=== PATIENT | female | born 1965 | race Caucasian/White ===

== ENCOUNTER 2025-02-16 10:45 | Outpatient (AMB) | payer OTHER, SELFPAY ==
--- NOTE | 2025-02-16 10:47 | A.OFFPC_ITS ---
Vital Signs 02/16/25 10:57 Height 5 ft 3 in Weight 124 lb 6 oz BMI 22.0 BP 118/68 Blood Pressure Location Lt brachial Position Sitting Respiration 12 Pulse 73 Pulse Source Pulse Oximeter Temp 97.6 F Temp Source Oral Pulse Oximetry (%) 98 Oxygen Delivery Method Room Air Intake Visit Reasons: TECHNICAL SU[employer]IP - Breast Cancer Intake Note: New patient to establish care Size Worker Required: No Allergies No Known Allergies Allergy (Verified 02/16/25 11:29) Medication List - Last Reconciled 02/16/25 by NATHAN AlbertsP-BC calcium carbonate (Calcium 600) 1,200 mg PO DAILY levothyroxine mcg PO triamcinolone acetonide 0.1% 1 appl topical BID-TID vit C,C-Bw-ptoce-lutein-zeaxan 250-90-40-1 mg (PreserVision AREDS-2) 1 tab PO BID Tobacco use date assessed: 02/16/25 Dental Screening Dental Screen Date: 02/16/25 Did you have a dental visit in the last 12 months?: No Did you have a dental problem in the last 6 months where you did not have access to dental care?: No Was dental information given to patient?: Yes HPI HPI Comments History of Present Illness Details 59 y/o F with guillermo hypothyroid, mul tinodular goiter, hx of pancreatitis, R breast high grade DCIS (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 Dtr drug addicted; cares for grandson Family hx: Sister and maternal aunt breast ca Health Maintenance: Colon 10 year recall, [place]. Mammo 2023 - no longer required s/p double mastectomy DEXA: 2023 osteopenia, on Ca+D managed by VARYING EXCEPTIONALITIES TEACHER PAP: partial hyst; active w/ VARYING EXCEPTIONALITIES TEACHER @ [place] Tdap 2023 Flu UTD Specialists: Onco at [facility] Optho [facility] [employer] Officer Endo Ramona Danielle Florez next labs in April Cards* no longer ff'd Derm Here today to est care & for CPE New patient Some records reviewed Hypothyroid managed by endocrinology and with Ravinder. On levothyroxine. Macular degeneration with cataracts is managed by Ophthalmology she was on preservation Breast cancer managed by Oncology Eczema on her arms treated with topical triamcinolone. Had a skin surveillance done by Dermatology. She reports a red area on her chest that has been present for years. Told it was benign. Today she presents with a red macular rash on her anterior chest extending to her right neck. Patient thinks that it was related to being nervous. It was not there earlier today. It does not bother her. We mutually agreed to have her monitor this rash and if it does not go away or gets worse to have her contact me or seek care with Derm Hx of syncope, was screened by Cards. Feels related to poor po intake. Has not recurred. They wanted to put in a loop recorder however she declined. She will consider further follow up but not at this time. Social stressors related to her daughter being drug addicted. She has to take care of her grandson who was age 14 and suffers from urinary incont. Admits insomnia. Related to stressors. Uses ijgr-khq-mjanmmm Benadryl type product with good effect. Trialed Ambien and what sounds like trazodone in the past without relief. Not interested in starting medications at this time however she was interested in counseling. Osteopenia, on ca+d Left lower back pain, consistently. Constant ache. Not unbearable. 3 weeks ago, felt like sciatica. This is gone. The low back pain cont. Denies injury, hx of kidney stones, changes in urination, abd pain, n/v. Tried APAP and NSAIDs w/ short lived relief. Denies red flags assoc w/ low back pain. ROS - General: Reports constant mild lower b ack pain, denies recent injury. - Neurological: Denies any recent fainti ng episodes. - Musculoskeletal: Reports mild osteopen ia-related hip pain. Denies any exacerb ation of back pain today. - Gastrointestinal: Denies belly pain, n ausea, or vomiting. Reports occasional acid reflux. - Genitourinary: Reports no issues with urination but notes urgency. - Endocrine: Reports ongoing management of thyroid condition. - Psychiatric: Reports stress, anxiety, and depression due to familial and work pressures. Reports sleep disturbances. Exam General: Well developed, well nourished, in no acute distress. Appears stated age. Head: Normocephalic, atraumatic. Eyes: Pupils are equal, round and reactive to light and accommodation. Conjunctivae are clear. Vision grossly normal. Ears: TMs clear AU, EACS WNL Nose: Patent, without discharge. Neck: Supple, no adenopathy or thyromegaly. Thyroid nodules noted. Breast: Status post bilateral mastectomy. Lungs: Clear to auscultation bilaterally. No rales, rhonchi or wheeze noted. Good air flow in all bone. Heart: Regular rate and rhythm. No murmurs, click, rubs or gallops are noted. Abdomen: Bowel sounds present in all quadrants. The abdomen is soft, nontender, with no masses or organomegaly noted. No hernias are noted. : Deferred. Reviewed recommendations for routine VARYING EXCEPTIONALITIES TEACHER. Pulses: Peripheral pulses are equal and palpable bilaterally. Extremities: No clubbing, cyanosis nor edema is noted. Neurologic: Gait and station normal. Cranial Nerves 2-12 intact. Motor strength grossly symmetrical and intact. No sensory loss. Balance normal. No CVAT. Skin: No ulcers, or lesions noted. Turgor is good. Skin color is good. Hair and nails are without abnormalities. See HPI. Psych: Normal eye contact, affect and mood appropriate, and normal interactions. Patient is alert and appropriate to context. Reports some anxiety and depressive symptoms. Plan: Recommend OTC Ibu 800mg TID for a few days, gentle stretching to help back pain. Edu on reasons to RTO or seek additional care. Cont all meds and care w/ care team Refer to NN for counseling Ok to use OTC sleep aides; consider meds PRN. Check labs in April and CC to Endo. Patient was informed and verbally consented to the use of an ambient scribe for clinic note documentation during this visit. An additional 30 minutes was spent addressing the problem(s) noted at todays visit. This includes time spent before the visit reviewing the chart, time spent during the visit, and time spent after the visit on documentation reviewing laboratory results, diagnostic imaging, medications, performing a medically necessary evaluation, counseling on diagnoses, care coordination, ordering appropriate tests, ordering appropriate medications, review of tests performed by other providers, reporting test results with the patient, communication with other healthcare providers. [facility] Medical History (Updated 02/16/25 @ 17:28 by Milla Cesar, [facility]) Breast cancer History of pancreatitis Hx of mammogram (~2023) Osteopenia Thyroid disorder Surgical History (Updated 02/16/25 @ 11:35 by Milla Cesar [facility]) H/O lumpectomy (~2009) H/O mastectomy (~2023) H/O: hysterectomy (~2010) History of breast surgery History of colonoscopy (~2017) Hx of cholecystectomy Social History (Updated 02/16/25 @ 10:57 by Yadira Sotomayor MA) Household Members: Friend(s) Both parents involved: No Caregiver staying overnight: No Housing: House Are you a primary rn managed care to a significant other at home: No Do you presently have visiting nurse or other home services: No 75 years or older and lives alone: No Alcohol intake: current Alcohol intake frequency: a few times a month Patient Tobacco Use Status: Never used Tobacco e-Cigarette/Vaping Use: Never Used Second Hand Smoke Exposure: No Current occupational status: employed Current occupation: human development Cognitive needs: No Hearing needs: No Vision needs: Yes (wear glasses) Questionnaire PHQ-9 Over the last 2 weeks, how often have you been bothered by any of the following problems? 1. Little interest or pleasure in doing things: not at all 2. Feeling down, depressed, or hopeless: not at all 3. Trouble falling or staying asleep, or sleeping too much: nearly every day 4. Feeling tired or having little energy: several days 5. Poor appetite or overeating: several days 6. Feeling bad about yourself - or that you are a failure or have let yourself or your family down: not at all 7. Trouble concentrating on things, such as reading the newspaper or watching television: not at all 8. Moving or speaking so slowly that other people could have noticed. Or the opposite - being so fidgety or restless that you have been moving around a lot more than usual: not at all 9. Thoughts that you would be better off or of hurting yourself in some way: not at all Total score: 5 Depression Screening Interpretation: Positive Depression Screening Follow-up: Existing condition Depression Screening Done: Yes 20259 - PHQ-9 Billing: Yes Source: Developed by Drs. Matti Mccord, Ca Mi, Reagan Kathleen and colleagues, with an educational bret from [employer]. Thrive Questionnaire Date Thrive assessed: 02/16/25 I am a: Patient What is your living situation today?: I have a steady place to live Within the past 12 months, did the food you bought not last and you didn't have the money to get more?: Never true Within the past 12 months, did you worry whether your food would run out before you got money to buy more?: Never true Do you have trouble paying for medicines?: No Do you have trouble getting transportation to medical appointments?: No Do you have trouble paying your heating and electricity bill?: No Do you have trouble taking care of your child, family member or friend?: No Do you have trouble with day-to-day activities such as bathing, preparing meals, shopping, managing finances, etc.?: No Are you currently unemployed and looking for a job?: No Are you interested in more education?: No Please select the resources that you would like help with: None Currently or been in a relationship where the following occur: No concerns reported THRIVE Score: 0 AUDIT C Alcohol Use Questionnaire (AUDIT-C) 1. How often do you have a drink containing alcohol?: Monthly or less 2. How many drinks containing alcohol do you have on a typical day when you are drinking?: 1 or 2 3. How often do you have six or more drinks on one occasion?: Never Total Score: 1 Score Reviewed/Action Taken: Yes ALEX-7 AMB Questionnaire ALEX-7 Date ALEX - 7 assessed: 02/16/25 Feeling nervous, anxious, or on edge: 1 = Several days Not being able to stop or control worryin = Several days Worrying too much about different things: 1 = Several days Trouble relaxin = Several days Being so restless that it is hard to sit still: 0 = Not at all Becoming easily annoyed or irritable: 0 = Not at all Feeling afraid as if something awful might happen: 0 = Not at all Total ALEX-7 score (0-4 normal; 5-9 mild; 10-14 moderate; 15-21 severe): 4 Source: Developed by Drs. Matti Mccord, Ca Mi, Reagan Kathleen and colleagues, with an educational bret from [employer]. ALEX-7 Assessment Billing ALEX-7 Assessment Tool: ALEX-7 Assessment 43050 Physical exam (Primary Care) Vital Signs: Last Vital Signs Temp 97.6 F 02/16/25 10:57 Pulse 73 02/16/25 10:57 Resp 12 02/16/25 10:57 BP 118/68 02/16/25 10:57 Pulse Ox 98 02/16/25 10:57 Oxygen Delivery Method Room Air 02/16/25 10:57 BMI result Body Mass Index 22.0 Tobacco/Smoking Status: Tobacco use Status Tobacco use date assessed 02/16/25 02/16/25 10:57 Patient Tobacco Use Status Never used Tobacco 02/16/25 10:57 e-Cigarette/Vaping Use Never Used 02/16/25 10:57 PHQ-9: PHQ-9 Score PHQ-9: Total score 5 02/16/25 11:40 Depression Screening Interpretation: Positive Depression Screening Follow-up: Existing condition Thrive Assessment: Date of Thrive Assessment Date Thrive assessed 02/16/25 02/16/25 10:52 Currently or been in a relationship where the following occur: No concerns reported Coding Level of Care Code Est Pt Level 4 (06818) New Pt Prev Care 40-64y(69888) Diagnoses Encounter for general adult medical examination with abnormal findings Z00.01 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 E06.3 Situational mixed anxiety and depressive disorder F43.23 Multinodular goiter E04.2 Malignant neoplasm of right female breast, unspecified estrogen receptor status, unspecified site of breast C50.911 Breast location: unspecified site of breast Estrogen receptor status: unspecified Patient sex: female Bilateral exudative age-related macular degeneration, unspecified stage H35.3230 Macular degeneration type: exudative age-related Exudative macular degeneration stage: unspecified stage Eye laterality: bilateral 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 Leukopenia type: neutropenia Neutropenia type: cyclic Gastroesophageal reflux disease without esophagitis K21.9 Esophagitis presence: without esophagitis Eczema, unspecified type L30.9 Eczema type: unspecified Encounter to establish care Z76.89 Laboratory exam ordered as part of routine general medical examination Z00.00 Family history of colon cancer Z80.0 Family history of breast cancer Z80.3 Additional Codes ALEX-7 Assessment Billing - ALEX-7 Assessment Tool: ALEX-7 Assessment 44892 ([id number]) PHQ-9 - 22857 - PHQ-9 Billing: Yes ([id number]) Assessment & Plan Assessment & Plan (1) Encounter for general adult medical examination with abnormal findings: Onset Date: ~02/2025 Code(s): Z00.01 - Encounter for general adult medical examination with abnormal findings Category: Medical (2) 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: Code(s): E06.3 - Autoimmune thyroiditis Category: Medical (3) Situational mixed anxiety and depressive disorder: Code(s): F43.23 - Adjustment disorder with mixed anxiety and depressed mood Category: Medical (4) Multinodular goiter: Code(s): E04.2 - Nontoxic multinodular goiter Category: Medical (5) Breast cancer, right: Comment: R breast high grade DCIS (2009 lumpectomy/Rx) Code(s): C50.911 - Malignant neoplasm of unspecified site of right female breast Category: Medical Qualifiers: Breast location: unspecified site of breast Estrogen receptor status: unspecified Patient sex: female Qualified Code(s): C50.911 - Malignant neoplasm of unspecified site of right female breast (6) Macular degeneration: Code(s): H35.30 - Unspecified macular degeneration Category: Medical Qualifiers: Macular degeneration type: exudative age-related Exudative macular degeneration stage: unspecified stage Eye laterality: bilateral Qualified Code(s): H35.3230 - Exudative age-related macular degeneration, bilateral, stage unspecified (7) Leukopenia: Code(s): D72.819 - Decreased white blood cell count, unspecified Category: Medical Qualifiers: Leukopenia type: neutropenia Neutropenia type: cyclic Qualified Code(s): D70.4 - Cyclic neutropenia (8) GERD (gastroesophageal reflux disease): Code(s): K21.9 - Gastro-esophageal reflux disease without esophagitis Category: Medical Qualifiers: Esophagitis presence: without esophagitis Qualified Code(s): K21.9 - Gastro-esophageal reflux disease without esophagitis (9) Eczema: Code(s): L30.9 - Dermatitis, unspecified Category: Medical Qualifiers: Eczema type: unspecified Qualified Code(s): L30.9 - Dermatitis, unspecified (10) Encounter to establish care: Code(s): Z76.89 - Persons encountering health services in other specified circumstances (11) Laboratory exam ordered as part of routine general medical examination: Code(s): Z00.00 - Encounter for general adult medical examination without abnormal findings Category: Medical (12) Family history of colon cancer: Comment: cousin Code(s): Z80.0 - Family history of malignant neoplasm of digestive organs Category: Medical (13) Family history of breast cancer: Comment: maternal aunt and sister negative genetic testing Code(s): Z80.3 - Family history of malignant neoplasm of breast Category: Medical Plan . Orders: Orders Complete Blood Count no Diff 04/10/25 E06.3 - Autoimmune thyroiditis, Z00.00 - Encounter for general adult medical examination without abnormal findings Lipid Panel 04/10/25 E06.3 - Autoimmune thyroiditis, Z00.00 - Encounter for general adult medical examination without abnormal findings Vitamin D 25-OH Total 04/10/25 E06.3 - Autoimmune thyroiditis, Z00.00 - Encounter for general adult medical examination without abnormal findings Comprehensive Met. Panel 04/10/25 E06.3 - Autoimmune thyroiditis, Z00.00 - En counter for general adult medical examination without abnormal findings Ferritin 04/10/25 E06.3 - Autoimmune thyroiditis, Z00.00 - Encounter for general adult medical examination without abnormal findings Hemoglobin A1c 04/10/25 E06.3 - Autoimmune thyroiditis, Z00.00 - Encounter for general adult medical examination without abnormal findings Microalbumin, Random (w Creat) 04/10/25 E06.3 - Autoimmune thyroiditis, Z00.00 - Encounter for general adult medical examination without abnormal findings TSH reflex Free T4 04/10/25 E06.3 - Autoimmune thyroiditis, Z00.00 - Encounter for general adult medical examination without abnormal findings Vitamin B12 and Folate 04/10/25 E06.3 - Autoimmune thyroiditis, Z00.00 - Encounter for general adult medical examination without abnormal findings Referrals Nurse Navigator Referral F43.23 - Adjustment disorder with mixed anxiety and depressed mood Patient Instructions: Walk-In Care (Urgent Care): We Make it Easy Walk-in for urgent medical issues such as: ? Seasonal Allergies ? Insect Bites ? Cough ? Diarrhea ? Acute Asthma Attacks ? Back, Knee or Joint Pain ? Ear Infection ? Fever without a Rash ? Headaches ? Nausea ? [place], Rash or Skin Irritation ? Sore Throat ? Sports Physicals ? Vomiting Most insurances are accepted. Patients do not need to be part of the [facility] to seek care at the walk-in clinic. Locations [address] , [place] [address] ? [phone] [facility] Walk-In Care in [place] provides services to ages 18 and over. Open Friday-Friday: 8 a.m. to 5 p.m. and Friday: 9 a.m. to 3 p.m.* *Hours may vary due to staffing availability. To confirm Walk-In Care hours in [place], please call [phone]. [address] [place] [id number] ? [phone] [facility] Walk-In Care in [place] provides services to ages 12 and over. Open Friday-Friday: 8 a.m. to 5 p.m. Hours may vary due to staffing availability. To confirm Walk-In Care hours in [place], please call [phone]. LABORATORY SERVICES: [facility] ? Primary Location [address] [place] [address] Friday through Friday 6:00 AM ? 5:00 PM Friday 7:00 AM ? 11:00 AM* [phone] The [facility] is centrally located near the front entrance of the [facility] for easy outpatient access. Convenient parking is provided for outpatients. *Hours may vary due to staffing availability. To confirm Laboratory hours for any location, please call [phone]. Offsite Location For your convenience, we offer offsite laboratory draw stations at the following locations: [address] [place] [address] ? [address], [address] Friday through Friday 7:30 AM ? 1:00 PM* [phone] *Hours may vary due to staffing availability. To confirm Laboratory hours for any location, please call [phone]. [place] ? [address] Friday through Friday 6:00 AM ? 3:30 PM* Friday 6:30 AM ? 3 PM* [phone] *Hours may vary due to staffing availability. To confirm Laboratory hours for any location, please call [phone]. [address] [facility] Friday through Friday 7:30 AM ? 4:00 PM* [phone] *Hours may vary due to staffing availability. To confirm Laboratory hours for any location, please call [phone]. [address] [facility] Friday through 9:00 AM ? 4:00 PM* *Hours may vary due to staffing availability. To confirm Laboratory hours for any location, please call [phone]. Appointments are not necessary. Walk-ins are welcome. Like all the departments throughout the [facility], our Lab undergoes frequent reviews to ensure the quality and accuracy of test results, and our staff takes special pride in its status as a nationally accredited facility. Patient Portal: ONE PATIENT. ONE RECORD. BETTER CARE. [facility] has a fully integrated, cutting- edge mobile electronic health information system that has revolutionized the way we care for our patients and manage our organization. This system improves communication and coordination enabling us to provide safe, higher-quality care, and an overall positive experience for staff and patients. Our first priority, as always, is to deliver the highest quality care possible. The system is running in the background supporting that priority. This portal is for all [facility] services and practices. If you are experiencing any technical difficulties with enrolling or logging into the Patient Portal please complete the [facility] Patient Portal Technical Support Form. [facility] now offers a new secure on-line interactive tool for patients to review their health information ? ?Patient Portal. This interactive web portal will enable patients and their families to take an active role in their care by providing easy, secure access to their health information via the internet. The Patient Portal provides patients with instant access to their health information, including laboratory results, medications, allergies, demographic information, visit history, and more. In addition to managing their own care, parents and health care proxies with authorized consent will appreciate the ability to access the records of those individuals for whom they provide care. Please note: if you wish to gain access (Proxy) to another patient?s portal, you will be required to come to the Medical Records Department in person at [facility]. Both the patient giving proxy access and the proxy will need to provide photo identification and complete the appropriate authorization. The Patient Portal also allows track their appointments online. The [facility] Patient Portal also saves patients time by allowing them to submit updates to their demographic and contact information prior to their visits. Portal email notifications will also alert patients to any new activity on their portal, such as test results and new appointments. In order to initially enroll in the [facility] Patient Portal, you will need to enter some required information including the following: * your [facility] Medical Record number * your personal home email address * name * date of Please note: In order to enroll in the [facility] Patient Portal, we need to have your email address on file in your electronic medical record. ?The email address needs to be specific for one person (yourself) in order for your Portal enrollment to be successful. ?You can update your email address in person with our Registration staff when you are registering for a hospital visit. ?Otherwise , you will need to come to the Health Information Management (Medical Records) Department at [facility]. ?We are open from Friday ? Friday from 7:30 a.m. ? 4:30 p.m. ?You will be required to present a photo id. Once you have successfully enrolled in the Patient Portal, you will receive a one-time user id and password for the Portal, sent to your email address. ?This will allow you to log into the Patient Portal within 99 hrs and reset your own logon id and password, and define personal security questions. ?Once your permanent login and password have been set, you can log into the [facility] Patient Portal at any time via the blue button above or from the Portal Logon button on any page of the [facility] website. [place] [facility] encourage all of our patients to enroll in Patient Portal as it presents a valuable opportunity for patients and their families to actively participate in their care and stay healthy Welcome to [facility]. ?We look forward to working with you. Health screenings for women You should visit your health care provider from time to time, even if you are healthy. The purpose of these visits is to: Screen for medical issues Assess your risk for future medical problems Encourage a healthy lifestyle Update vaccinations and other preventive care services Help you get to know your provider in case of an illness Information Even if you feel fine, you should still see your provider for regular checkups. These visits can help you avoid problems in the future. For example, the only way to find out if you have high blood pressure is to have it checked regularly. High blood sugar and high cholesterol levels also may not have any symptoms in the early stages. A simple blood test can check for these conditions. There are specific times when you should see your provider or receive specific health screenings. The [place] Preventive Services Task Force publishes a list of recommended screenings. Below are screening guidelines for women ages 18 to 39. BLOOD PRESSURE SCREENING Your blood pressure should be checked at least once every 3 to 5 years if: Your blood pressure is in the normal range (top number less than 120 mm Hg and bottom number less than 80 mm Hg) You don't have risk factors for high blood pressure Ask your provider if you need your blood pressure checked more often if: The top number is 120 to 129 mm Hg or the bottom number is 70 to 79 mm Hg You have diabetes, heart disease, kidney problems, are overweight, or have certain other health conditions You have a first-degree relative with high blood pressure You are Black You had high blood pressure during a If the top number is 130 mm Hg or greater or the bottom number is 80 mm Hg or greater, this is considered stage 1 hypertension. Schedule an appointment with your provider to learn how you can reduce your blood pressure. Watch for blood pressure screenings in your area. Ask your provider if you can stop in to have your blood pressure checked. BREAST CANCER SCREENING Experts do not agree about the benefits of breast self-exams in finding breast cancer or saving lives. Talk to your provider about what is best for you. A screening mammogram is not recommended for most women under age 40. Your provider may discuss and recommend mammograms, MRI scans, or ultrasounds if you have an increased risk for breast cancer, such as: A mother or sister who had breast cancer at a young age (most often starting screening earlier than the age the close relative was diagnosed) You carry a high-risk genetic marker CERVICAL CANCER SCREENING Cervical cancer screening should start at age 21 years unless your provider advises otherwise. After the first test: Women ages 21 through 29 should have a Pap test every 3 years. Exoprts do not agree on whether HPV testing is recommended for this age group. Women ages 30 through 65 should be screened with either a Pap test every 3 years or the HPV test every 5 years or both tests every 5 years (called cotesting ). Women who have been treated for precancer (cervical dysplasia) should continue to have Pap tests for 20 years after treatment or until age 65, whichever is longer. If you have had your uterus and cervix removed (total hysterectomy), and you have not been diagnosed with cervical cancer or precancer (high grade cervical neoplasia), you do not need cervical cancer screening. CHOLESTEROL SCREENING Cholesterol screening should begin at: Age 45 for women with no known risk factors for coronary heart disease Age 20 for women with known risk factors for coronary heart disease Repeat cholesterol screening should take place: Every 5 years for women with normal cholesterol levels More often if changes occur in lifestyle (including weight gain and diet) More often if you have diabetes, heart disease, kidney problems, or certain other conditions DIABETES SCREENING You should be screened for diabetes starting at age 35 and then repeated every 3 years if you have no risk factors for diabetes. Screening may need to start earlier and be repeated more often if you have other risk factors for diabetes, such as: You have a first degree relative with diabetes. You are overweight or have obesity. You have high blood pressure, prediabetes, or a history of heart disease. Screening for diabetes should be done if you are planning to become and you are overweight and have other risk factors such as high blood pressure. DENTAL EXAM Go to the dentist once or twice every year for an exam and cleaning. Your dentist will evaluate if you need more frequent visits. EYE EXAM Have an eye exam every 5 to 10 years before age 40. If you have vision problems, have an eye exam every 2 years or more often if recommended by your provider. You should have an eye exam that includes an examination of your retina (back of your eye) at least every year if you have diabetes. IMMUNIZATIONS Commonly needed vaccines include: Flu shot: get one every year. COVID-19 vaccine: ask your provider what is best for you. Tetanus-diphtheria and acellular pertussis (Tdap) vaccine: have one at or after age 19 as one of your tetanus-diphtheria vaccines if you did not receive it as an adolescent. Tetanus-diphtheria: have a booster (or Tdap) every 10 years. Varicella vaccine: receive 2 doses if you never had chickenpox or the varicella vaccine. Hepatitis B vaccine: receive 2, 3, or 4 doses, depending on your exact circumstances. Measles, mumps, and rubella (MMR) vaccine: receive 1 to 2 doses if you are not already immune to MMR. Your provider can tell you if you are immune. Ask your provider about the human papillomavirus (HPV) vaccine if: You have not received the HPV vaccine in the past You have not completed the full vaccine series (you should catch up on this shot) Ask your provider if you should receive other immunizations if you have certain health problems that increase your risk for some diseases such as pneumonia. INFECTIOUS DISEASE SCREENING Women who are sexually active should be screened for chlamydia and gonorrhea up until age 25. Women 25 years and older should be screened for chlamydia and gonorrhea if at high risk. Screening for hepatitis C: All adults ages 18 to 79 should get a one-time test for hepatitis C. people should be screened at every . Screening for human immunodeficiency virus (HIV): All people ages 15 to 65 should get a one-time test for HIV. Depending on your lifestyle and medical history, you may also need to be screened for infections such as syphilis and HIV, as well as other infections. PHYSICAL EXAM All adults should visit their provider from time to time, even if they are healthy. The purpose of these visits is to: Screen for disease Assess your risk of future medical problems Encourage a healthy lifestyle Update your vaccinations and other preventive care services Maintain a relationship with a provider in case of an illness Your height, weight, and BMI should be checked at every exam. During your exam, your provider may ask you about: Depression and anxiety Diet and exercise Alcohol and tobacco use Safety issues, such as using seat belts, smoke detectors, and intimate partner violence Your medicines and risk for interactions SKIN SELF-EXAM Your provider may check your skin for signs of skin cancer, especially if you're at high risk, such as if you: Have had skin cancer before Have close relatives with skin cancer Have a weakened immune system OTHER SCREENING Talk with your provider about colon cancer screening if you have a strong family history of colon cancer or polyps, or if you have had inflammatory bowel disease or polyps yourself. Routine bone density screening of women under 40 is not recommended.
[2025-02-16 10:57] VITALS: BP 118/68; PULSE 73; RESP 12; TEMP 36.4; O2SAT 98; BMI 22.0
--- OUTSIDE RECORDS SUMMARY | 2025-02-16 12:28 | XMS_ITS | Encounter Summary ---
Author Organization [facility] Address [address] [place] [address] Care Team Providers Care Dietetics Director Name Role Phone Jazmin Márquez MD Primary Care Provider Raisa Ferrera DO Primary Care Provider Ramandeep Howe MD Primary Care Provider Un available Encounter Details Date Type Department Care Team Description 03/31/2018 Pt. Non Urgent Medical Question [facility] [place] [address], [place] [id number] Ekaterina Dill MD Social History Tobacco Use Types Packs/Day Years Used Date Smoking Tobacco: Never Smokeless Tobacco: Never Alcohol Use Standard Drinks/Week Comments Yes 0 (1 standard drink = 0.6 oz pur e alcohol) 2 drinks 0-2x/wk Sex Assigned at Date Recorded Female 04/24/2021 11:07 PM EDT Job Start Date Occupation Industry Not on file Not on file Not on file documented as of this encounter Progress Notes * Marilu Ceballos R.N. - 03/31/2018 1:50 PM EDTFrom: Griselda Murphy To: Ekaterina Dill MD Sent: 03/31/2018 12:16 PM EDT Subject: Question regarding ULTRASOUND OF PELVIS I have a question about ULTRASOUND OF PELVIS resulted on 03/27/18, 6:44 PM. documented in this encounter Plan of Treatment Not on file documented as of this encounter Visit Diagnoses Not on filedocumented in this encounter Care Teams Dietetics Director Relationship Specialty Start Date End Date Jazmin Márquez MD PCP - General Family Practice 12/31/16 01/13/24 Raisa Mas DO PCP - General Internal Medicine 01/14/24 02/22/24 Ramandeep Duncan MD PCP - General Internal Medicine 02/23/24 documented as of this encounter
--- OUTSIDE RECORDS SUMMARY | 2025-02-16 12:28 | XMS_ITS | Encounter Summary ---
Author Organization [facility] Address [address] [place] [address] Care Team Providers Care Swimming Pool Servicer Name Role Phone Jazmin Márquez MD Primary Care Provider Raisa Ferrera DO Primary Care Provider Ramandeep Howe MD Primary Care Provider Un available Encounter Details Date Type Department Care Team Description 07/05/2022 Pt. Non Urgent Medical Question [facility] [address] [place] [address] Nelda Coats CNM [address] [place] [id number] Social History Tobacco Use Types Packs/Day Years Used Date Smoking Tobacco: Never Smokeless Tobacco: Never Alcohol Use Standard Drinks/Week Comments Yes 0 (1 standard drink = 0.6 oz pur e alcohol) 2 drinks 0-2x/wk Sex Assigned at Date Recorded Female 04/24/2021 11:07 PM EDT Job Start Date Occupation Industry Not on file Not on file Not on file documented as of this encounter Miscellaneous Notes * Telephone Encounter - Marilu Ceballos R.N. - 07/08/2022 8:25 AM EDTFrom: Griselda Murphy To: Nelda Coats CNM Sent: 07/05/2022 1:23 PM EDT Subject: Appointment Hi I???d like to schedule my annual check up appointment, if I don???t already have one. Thank you documented in this encounter Plan of Treatment Not on file documented as of this encounter Visit Diagnoses Not on filedocumented in this encounter Care Teams Swimming Pool Servicer Relationship Specialty Start Date End Date Jazmin Márquez MD PCP - General Family Practice 12/31/16 01/13/24 Raisa Mas DO PCP - General Internal Medicine 01/14/24 02/22/24 Ramandeep Duncan MD PCP - General Internal Medicine 02/23/24 documented as of this encounter
--- OUTSIDE RECORDS SUMMARY | 2025-02-16 12:28 | XMS_ITS | Clinical Summary ---
Author Organization [facility] [address] [facility] [address] Address [address] [place] [address] Phone Care Team Providers Care Die Trimmer Name Role Phone Tanisha Martínez MD Primary Care Provider [phone] Allergies Active Allergy Reactions Criticality Noted Date Comments Bee Venom Protein (Honey Bee) 2016 Medications calcium carbonate-rosi calciferol 500 mg-10 mcg (400 unit) per chewable tablet Chew by mouth. Active multivitamin with minerals tablet Take by mouth Active chlorhexidine (HIBICLENS) 4 % external liquid Apply 1 bottle topically once. Follow preop instruction from doctor's office Active levothyroxine (SYNTHROID, LEVOTHROID) 75 mcg tablet Take 1 tablet (75 mcg total) by mouth 1 (one) time each day in the morning. Take an extra tablet on Sundays. 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 Dr. Vangie Benjamin, [facility]. OTHER SURGICAL HISTORY 03/14/2011 Right PROCEDURE: OK EXC BREAST LES PREOP PLMT RAD MARKER OPEN 1 LES; COMMENT: Right breast needle-localized excision of suspicious calcifications, beingn. Dr. Vangie Benjamin, [facility]. HYSTERECTOMY PROCEDURE: HISTORICAL HYSTERECTOMY; COMMENT: Laparoscopic supracervical hysterectomy for fibroids. Cervix and ovaries remain in-situ. CHOLECYSTECTOMY PROCEDURE:CHOLECYSTECTOMY Medical History Medical History Date Comments Hypothyroidism DX:Hypothyroidis m Family history of breast cancer in female DX:Family history of breast cancer in female; COMMENT: Sister age 50, Maternal Aunt age 70 Osteopenia DX:Osteopenia History of ductal carcinoma in situ (DCIS) of breast DX:History of ductal carcino ma in situ (DCIS) of breast Macular degeneration DX:Macular degeneration Breast cancer DX:Breast cancer (HCC);COMMENT:Right sided grade 3 DCIS Family History Medical History Relation Name Comments Cancer Father kidney,lung ca Kidney cancer Father Lung cancer Father Basal cell carcinoma Maternal Grandfather Melanoma Maternal Grandmother Bladder Cancer Mother Transitional cell cancer Cancer Mother transitional ce ll bladder cancer Lung cancer Mother Cancer Mother's Sister breast ca.pa ncreatic ca Breast cancer Mother's side 1 Maternal au nt Pancreatic cancer Mother's side 1 Materna l aunt Colon cancer Mother's side 2 Maternal cou sin; late 40's Breast cancer Sister Leukemia Uncle Maternal Ovarian cancer Neg Hx Uterine cancer Neg Hx Relation Name Status Comments Father Maternal Grandfather Maternal Grandmother Mother Mother's Sister Mother's side 1 Mother's side 2 Sister Uncle Alive Social History Tobacco Use Types Packs/Day Years Used Date Smoking Tobacco: Never Smokeless Tobacco: Never Tobacco Cessation:Counseling Given: Not Answered Alcohol Use Standard Drinks/Week Comments Yes 0 (1 standard drink = 0.6 oz pur e alcohol) Comments Unknown Sex and Gender Information Value Date Recorded Sex Assigned at Not on file Legal Sex Female 4:21 PM EST Gender Identity Not on file Sexual Orientation Not on file Obstetrics History Last Filed Vital Signs Vital Sign Reading Time Taken Comments Blood Pressure 112/80 11/05/2024 10:24 AM EST Pulse 77 11/05/2024 10:24 AM EST Temperature 36.7 ??C (98.1 ??F) 11/05/2024 10:[address] Respiratory Rate - - Oxygen Saturation 100% 11/05/2024 10:24 AM EST Inhaled Oxygen Concentration - - Weight 54.9 kg (121 lb) 11/05/2024 10:24 AM EST Height 160 cm (5' 3 ) 09/13/2024 8:46 AM EST Body Mass Index 21.43 09/13/2024 8:46 AM EST Plan of Treatment Upcoming Encounters Date Type Department Care Team (Late st Contact Info) Description 05/04/2025 9:15 AM EDT Office Visit [facility] Hematology Oncology [address] [place] [phone] Kurt Cat MD [address] [place] [phone] 05/20/2025 1:30 PM EDT Office Visit Obstetrics and Gynecology [facility] [address] [place] [address] Jcarlos Kendall CN [address] [place] [address] Health Maintenance Due Date Last Done Comments Pneumococcal Vaccine: 50+ Years (1 of 2 - PCV) 1983 Pneumococcal Vaccine: Pediatrics (0 to 5 Years) and At-Risk Patients (6 to 64 Years) (1 of 2 - PCV) 1983 Social Influencers of Health Screening 10/19/2022 COVID-19 Vaccine ( season) 2024 09/28/2022, 10/15/2021, 01/21/2021, Additional history exists Depression Screening 06/11/2025 06/11/2024 Breast Cancer Screening 06/18/2026 06/18/20 24, 06/17/2023, 06/07/2022, Additional history exists Cervical Cancer Screening: HPV 10/15/2026 10/15/2021 Cholesterol Screening (Lipid Panel) 06/11/2029 06/11/2024, 06/11/2024 Colorectal Cancer Screening: Colonoscopy 05/06/2032 05/06/2022 DTaP,Tdap,and Td Vaccines (3 - Td or Tdap) 06/11/2034 06/11/2024, 07/05/2010 RSV Immunization Adult Patients (1 - 1-dose 75+ series) 2039 HIV Screening Completed 02/27/2018 Hepatitis C Screening Completed 02/27/2018 Zoster Vaccines Completed 11/09/2018, 08/10, 2014 Influenza Vaccine Completed 08/02/2024, , 08/19/2023, Additional history exists HIB Vaccines Aged Out No longer eligi ble based on patient's age to complete this topic HPV Vaccines Aged Out No longer eligi ble based on patient's age to complete this topic Hepatitis A Vaccines Aged Out No long er eligible based on patient's age to complete this topic Hepatitis B Vaccines Aged Out No long er eligible based on patient's age to complete this topic IPV Vaccines Aged Out No longer eligi ble based on patient's age to complete this topic MMR Vaccines Aged Out No longer eligi ble based on patient's age to complete this topic Meningococcal ACWY Vaccine Aged Out N o longer eligible based on patient's age to complete this topic Meningococcal B Vaccine Aged Out No l onger eligible based on patient's age to complete this topic RSV Immunization Patients Under 20 months Aged Out No longer eligible based on patient's age to complete this topic Varicella Vaccines Aged Out No longer eligible based on patient's age to complete this topic Procedures Procedure Name Priority Date/Time Associated Diagnosis Comments ALCIRA SCREENING DIGITAL Routine 06/18/2024 2:35 PM EDT Encounter for screening mammogram for malignant neoplasm of breast DEPRESSION SCREENING Routine 06/11/2024 LIPID PANEL Routine 06/11/2024 COLONOSCOPY Routine 05/06/2022 HPV Routine 10/15/2021 HEPATITIS C SCREENING Routine 02/27/2018 HIV SCREENING Routine 02/27/2018 from Last 3 Months or Most Recently Relevant to Health Maintenance Results * ALCIRA SCREENING DIGITAL (06/18/2024 2:35 PM EDT) Anatomical Region Laterality Modality Mammography 06/18/2024 1:14 PM EDT Narrative 06/18/2024 2:[address] [facility] Diagnostic Imaging Department [address] [place] [id number] Patient: ??GRISELDA REEDER ?/Age/Sex: 1965 - 58 - F Unit#: ??[id number] ? Location/Status: ??SPDIMAM/REG CLI ? Mnemonic/Ordering Site: ??DIGSC/SPMAM Ordering Physician: ??KURT CAT MD [facility] Screening Digital - 06/18/24 - 0 Report Status:Signed EXAM: [facility] Screening Digital EXAM DATE AND TIME: 06/18/2024 1:31 PM HISTORY: ??Screening. Personal history of right breast carcinoma (high-grade DCIS) treated with lumpectomy in 2010 followed by radiation treatment. Sister had breast carcinoma at age 50. COMPARISON: ??06/17/23, 06/07/22, 05/09/21, 05/02/20 TECHNIQUE: Bilateral digital breast tomosynthesis was performed in the CC and MLO projections. Computer aided detection with DustcloudD copygram 3D 3.1 was employed. TISSUE DENSITY: c. The breasts are heterogeneously dense, which may obscure small masses. FINDINGS: Focal asymmetry and architectural distortion are again seen in the medial right breast, approximately middle 3:00, consistent with the lumpectomy scar. There is thickening and retraction of the overlying skin, unchanged. New linearly oriented microcalcifications extend anteriorly, toward the nipple, from the scar. Further assessment with spot compression magnification views are recommended. Benign rim calcifications are again seen bilaterally. No suspicious masses are seen. The vascularity is unremarkable. IMPRESSION: 1. New microcalcifications in the right breast, for which additional views are recommended. The patient will be called back. 2. Stable mammographic appearance of the left breast. No evidence of malignancy is seen. BI-RADS: ??Category 0: Incomplete - Need Additional Imaging Evaluation RECOMMENDATION(S): 1: Special mammographic view(s) needed RIGHT Dictating Physician: ??CANDACE ABDI MD Electronically Signed by: ??CANDACE ABDI MD Dic Date/Time: ??06/18/24 1433 Sign date/Time: ??06/18/24 1435 Procedure Note Candace Abdi MD - 08/25/2024 [facility] Diagnostic Imaging Department [address] [place] [address] Patient: GRISELDA REEDER /Age/Sex: 1965 - 58 - F Unit#: [id number] Location/Status: SPDIMAM/REG CLI Mnemonic/Ordering Site: DIGSC/SPMAM Ordering Physician: KURT CAT MD [facility] Screening Digital - 06/18/24 - 1330 Report Status:Signed EXAM: [facility] Screening Digital EXAM DATE AND TIME: 06/18/2024 1:31 PM HISTORY: Screening. Personal history of right breast carcinoma(high-grade DCIS) treated with lumpectomy in 2010 followed by radiation treatment.Sister had breast carcinoma at age 50. COMPARISON: 06/17/23, 06/07/22, 05/09/21, 05/02/20 TECHNIQUE: Bilateral digital breast tomosynthesis was performed in the CCand MLO projections. Computer aided detection with Quill Content 3D 3.1was employed. TISSUE DENSITY: c. The breasts are heterogeneously dense, which mayobscure small masses. FINDINGS: Focal asymmetry and architectural distortion are again seen in the medialright breast, approximately middle 3:00, consistent with the lumpectomy scar.There is thickening and retraction of the overlying skin, unchanged. New linearly oriented microcalcifications extend anteriorly, toward thenipple, from the scar. Further assessment with spot compression magnificationviews are recommended. Benign rim calcifications are again seen bilaterally. No suspicious massesare seen. The vascularity is unremarkable. IMPRESSION: 1. New microcalcifications in the right breast, for which additional viewsare recommended. The patient will be called back. 2. Stable mammographic appearance of the left breast. No evidence ofmalignancy is seen. BI-RADS: Category 0: Incomplete - Need Additional Imaging Evaluation RECOMMENDATION(S): 1: Special mammographic view(s) needed RIGHT Dictating Physician: CANDACE ABDI MD Electronically Signed by: CANDACE ABDI MD Dic Date/Time: 06/18/24 1433 Sign date/Time: 06/18/24 1435 us Kurt Cat MD IMG BI PROCEDURES Final Res ult * Hm Depression Screening (06/11/2024) HM Depression Screening abstracted [facility] Provider HEALTH MAINTENANCE Final Result * Lipid panel (06/11/2024) [facility] LDL/HDL Ratio 2 0 - 4 Triglycerides 95 0 - 150 mg/dL Cholesterol 196 0 - 200 mg/dL HDL 93 >=40 mg/dL LDL Cholesterol 84 0 - 100 mg/dL Blood Venous blood specimen / Unknown Result [facility] Provider LAB BLOOD ORDERABLES Jennifer l Result * Colonoscopy (05/06/2022) [facility] Colonoscopy abstracted,no interpretation Anatomical Region Laterality Modality Other Result [facility] Provider HEALTH MAINTENANCE Final Result * Cervical Cancer Screening: HPV (10/15/2021) [facility] Cervical Cancer Screening: HPV abstracted ,negative Result [facility] Provider HEALTH MAINTENANCE Final Result * HIV Screening (02/27/2018) [facility] HIV Screening abstracted [facility] Provider HEALTH MAINTENANCE Final Result * Hepatitis C Screening (02/27/2018) [facility] Hepatitis C Screening Abstracted [facility] Provider HEALTH MAINTENANCE Final Result from Last 3 Months or Most Recently Relevant to Health Maintenance Insurance [facility] [place] [address] Care Teams Die Trimmer Relationship Specialty Start Date End Date O'Quinonez, Tanisha M, MD PCP - General 08/25/24
--- OUTSIDE RECORDS SUMMARY | 2025-02-16 12:28 | XMS_ITS | Encounter Summary ---
Author Organization [facility] Address [address] [place] [address] Care Team Providers Care Management Aide Name Role Phone Jazmin Márquez MD Primary Care Provider Raisa Ferrera DO Primary Care Provider Unavaila Ramandeep Chaidez MD Primary Care Provider Un available Reason for Visit * Reason Onset Date Comments TEST RESULTS 03/31/2018 Encounter Details Date Type Department Care Team Description 03/31/[address] [id number] Ekaterina Dill MD TEST RESULTS Social History Tobacco Use Types Packs/Day Years [...] Telephone Encounter - Marilu Ceballos R.N. - 03/31/2018 9:33 AM EDT Message to Dr Dill * Telephone Encounter - Rhianna Diego - 03/31/2018 9:13 AM EDT Inform patient: ANY URGENT OR ABNORMAL RESULTS WIILL RESULT IN A CALL BACK TO THE PATIENT MELANIE. Type of test: :ultrasound Date test was performed: 03/27/18 Where was the test performed: [facility] Who ordered this test?: Dr Dill Is the doctor here today?: NO Can the message wait until the doctor returns?: NO IF PATIENT'S PCP IS NOT IN INSTRUCT PATIENT THAT THEY WILL RECEIVE A CALL BACK WHEN THE PCP IS IN THE OFFICE NEXT. documented in this encounter Plan of Treatment Not on file documented as of this encounter Visit Diagnoses Not on filedocumented in this encounter Care Teams Management Aide Relationship Specialty Start Date End Date Jazmin Márquez MD PCP - General Family Practice 12/31/16 01/13/24 Raisa Mas DO PCP - General Internal Medicine 01/14/24 02/22/24 Ramandeep Duncan MD PCP - General Internal Medicine 02/23/24 documented as of this encounter
--- OUTSIDE RECORDS SUMMARY | 2025-02-16 12:28 | XMS_ITS | Encounter Summary ---
Author Organization [facility] Address [address] [place] [address] Care Team Providers Care Management Nurse Rn Name Role Phone Ramandeep Duncna MD Primary Care Provider Un available Encounter Details Date Type Department Care Team Description 07/30/2024 Orders Only Medical Records [address] [place] [address] Jarrell Rob MD [address] [place] [address] [address] [facility] [place] [address] Social History Tobacco Use Types Packs/Day Years [...] as of this encounter Plan of Treatment Not on file documented as of this encounter Procedures Procedure Name Priority Date/Time Associated Diagnosis Comments OUTSIDE LAB Routine 07/21/2024 documented in this encounter Results * OUTSIDE LAB (07/21/2024) Jarrell Rob MD LAB documented in this encounter Visit Diagnoses Not on filedocumented in this encounter Care Teams Management Nurse Rn Relationship Specialty Start Date End Date Ramandeep Duncan MD PCP - General Internal Medicine 02/23/24 documented as of this encounter
--- OUTSIDE RECORDS SUMMARY | 2025-02-16 12:28 | XMS_ITS | Clinical Summary ---
Author Organization [facility] Address [address] [place] [address] Care Team Providers Care Animal Shelter Clerk Name Role Phone Tanisha Martínez MD Primary Care Provider [phone] Allergies No known active allergies Medications Medication Sig Dispensed Refills Start Date End Date Status Calcium Carb-Cholecalciferol 500-400 MG-UNIT CHEW Chew by mouth. 0 Active levothyroxine (SYNTHROID) tablet 75 mcg Take 1 tablet (75 mcg total) by mouth every morning on an empty stomach. 1 1/2/ pillsdaily 0 Active Multiple Vitamins-Minerals (ICAPS AREDS 2 PO) Take by mouth. 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) 04/23/2018 Family History Medical History Relation Name Comments Cancer Father kidney,lung ca Cancer Maternal Aunt breast ca.panc reatic ca Cancer Mother transitional ce ll bladder cancer Relation Name Status Comments Father Maternal Aunt Mother Social History Tobacco Use Types Packs/Day Years Used Date Smoking Tobacco: Never Smokeless Tobacco: Never Tobacco Cessation:Counseling Given: Yes Sex and Gender Information Value Date Recorded Sex Assigned at Not on file Gender Identity Not on file Sexual Orientation Not on file Job Start Date Occupation Industry Not on file Not on file Not on file Last Filed Vital Signs Vital Sign Reading Time Taken Comments Blood Pressure 116/59 08/25/2024 10:33 AM EDT Pulse 71 08/25/2024 10:33 AM EDT Temperature 36.7 ??C (98 ??F) 08/25/2024 10:33 AM EDT Respiratory Rate - - Oxygen Saturation 100% 08/25/2024 10:33 AM EDT Inhaled Oxygen Concentration - - Weight 54.4 kg (120 lb) 08/25/2024 10:33 AM EDT Height 160 cm (5' 3 ) 07/14/2024 11:27 AM EDT Body Mass Index 21.26 07/14/2024 11:27 AM EDT Plan of Treatment Health Maintenance Due Date Last Done Comments COVID-19 Vaccine (#1) 1969 Pneumococcal Vaccine (1 of 2 - PCV) 1970 Depression Screening 1976 Preventative Health Evaluation 1982 Cervical Cancer Screening (P ap Smear) 1985 Colon Cancer Screening (Colonoscopy) 2009 Breast Cancer Screening (Mammogram) 2014 Shingrix-Zoster Vaccine (2 of 2) 02/04/2015 12/10/19 15 Influenza Vaccine (#1) 2024 DTap / Tdap / Td (2 - Td or Tdap) 06/11/2034 024 RSV Adult > 60+ Yrs or Pregn ant (1 - 1-dose 75+ series) 2039 Hepatitis C Screening Completed 02/27/2018 Hepatitis B Vaccines Aged Out No long er eligible based on patient's age to complete this topic RSV Ped < 20 months Aged Out No longe r eligible based on patient's age to complete this topic Care Teams Animal Shelter Clerk Relationship Specialty Start Date End Date Tanisha Martínez MD PCP - General Internal Medicine 08/25/24
--- OUTSIDE RECORDS SUMMARY | 2025-02-16 12:28 | XMS_ITS | Encounter Summary ---
Author Organization [facility] Address [address] [place] [address] Care Team Providers Care Fiscal Clerk Name Role Phone Tanisha Martínez MD Primary Care Provider [phone] Encounter Details Date Type Department Care Team (Late Contact Info) Description 08/25/2024 10:30 AM EDT Hospital Encounter TH HISTORIC ENCOUNTERS EASTERN CONVERSION ONLY Kurt Nassar MD [address] [place] [address] Social History Tobacco Use Types [...] Department Care Team (Late Contact Info) Description 05/04/2025 9:15 AM EDT Office Visit [facility] Hematology Oncology [address] [place] [phone] Kurt Nassar MD [address] [place] [address] 05/20/2025 1:30 PM EDT Office Visit Obstetrics and Gynecology - [place] [address] [place] [address] Jcarlos Kendall [facility] [address] [place] [address] documented as of this encounter Visit Diagnoses Not on filedocumented in this encounter Care Teams Fiscal Clerk Relationship Specialty Start Date End Date Tanisha Martínez MD PCP - General 08/25/24 documented as of this encounter
== END 2025-02-16 11:57 | disposition home or self-care (01) ==
LOC: HO.HMCFM 10:46
PROVIDERS: PCP Nurse Practitioner Family; Visit Provider Nurse Practitioner Family
DX: Z00.01 Encounter for general adult medical examination with abnormal findings (principal); C50.911 Malignant neoplasm of unspecified site of right female breast; H35.3230 Exudative age-related macular degeneration, bilateral, stage unspecified; D70.4 Cyclic neutropenia; E06.3 Autoimmune thyroiditis; F43.23 Adjustment disorder with mixed anxiety and depressed mood; E04.2 Nontoxic multinodular goiter; K21.9 Gastro-esophageal reflux disease without esophagitis; L30.9 Dermatitis, unspecified; Z76.89 Persons encountering health services in other specified circumstances; Z80.0 Family history of malignant neoplasm of digestive organs

== ENCOUNTER → 2025-02-16 10:45 | Outpatient (BNVA) | payer OTHER, SELFPAY | PROVIDERS: PCP Nurse Practitioner Family; Visit Provider Nurse Practitioner Family | DX: Z00.01 Encounter for general adult medical examination with abnormal findings (principal); E06.3 Autoimmune thyroiditis; K21.9 Gastro-esophageal reflux disease without esophagitis; M85.80 Other specified disorders of bone density and structure, unspecified site; F43.23 Adjustment disorder with mixed anxiety and depressed mood; E04.2 Nontoxic multinodular goiter; C50.911 Malignant neoplasm of unspecified site of right female breast; H35.3230 Exudative age-related macular degeneration, bilateral, stage unspecified; D70.4 Cyclic neutropenia; L30.9 Dermatitis, unspecified; Z76.89 Persons encountering health services in other specified circumstances; Z80.0 Family history of malignant neoplasm of digestive organs; Z80.3 Family history of malignant neoplasm of breast; Z86.000 Personal history of in-situ neoplasm of breast | CPT/HCPCS: 96127; 99212; 99386 ==

== ENCOUNTER 2025-04-13 15:11 | Outpatient (REF) | payer OTHER, SELFPAY ==
--- OUTSIDE RECORDS SUMMARY | 2025-04-13 15:21 | XMS_ITS | Clinical Summary ---
Author Organization [facility] [address] [facility] Address [address] [place] [address] Phone Care Team Providers Care Service Attendant Name Role Phone Tanisha Martínez MD Primary Care Provider [phone] Allergies Active Allergy Reactions Criticality Noted Date [...] Right breast needle-localized lumpectomy. Dr. Vangie Benjamin, [facility]. OTHER SURGICAL HISTORY 03/14/2011 Right PROCEDURE: PA EXC BREAST LES PREOP PLMT RAD MARKER OPEN 1 LES; COMMENT: Right breast needle-localized excision of suspicious calcifications, beingn. Dr. Vangie Benjamin, [facility]. HYSTERECTOMY PROCEDURE: HISTORICAL HYSTERECTOMY; COMMENT: Laparoscopic [...] breast Macular degeneration DX:Macular degeneration Breast cancer (CMS/HCC V24, CMS/HCC V28) DX:Breast cancer (HCC);COMMENT:Right sided grade 3 DCIS [...] Description 05/04/2025 9:15 AM EDT Office Visit [facility] Hematology Oncology [address] [place] [phone] Kurt Cat MD [address] [place] [phone] 05/20/2025 1:30 PM EDT Office Visit Obstetrics and Gynecology [facility] [address] [place] [address] Jcarlos Kendall CN [address] [place] [address] Health Maintenance Due Date Last Done Comments [...] PM EDT Narrative 06/18/2024 2:35 PM EDT [facility] Diagnostic Imaging Department [address] [place] [address] Patient: ??GRISELDA REEDER ?/Age/Sex: 1965 - 58 - F Unit#: ??[id number] ? Location/Status: ??SPDIMAM/REG CLI ? Mnemonic/Ordering Site: ??DIGSC/SPMAM Ordering Physician: ??KURT CAT MD [facility] Screening Digital - 06/18/24 - 1330 Report Status:Signed EXAM: [facility] Screening Digital EXAM DATE AND TIME: 06/18/2024 1:31 PM HISTORY: ??Screening. Personal history of right breast carcinoma (high-grade DCIS) treated with lumpectomy in 2010 followed by radiation treatment. Sister had breast carcinoma at age 50. COMPARISON: ??06/17/23, 06/07/22, 05/09/21, 05/02/20 TECHNIQUE: Bilateral digital breast tomosynthesis was performed in the CC and MLO projections. Computer aided detection with [employer] 3D 3.1 was employed. TISSUE DENSITY: c. [...] Procedure Note Candace Abdi MD - 08/25/2024 [facility] Diagnostic Imaging Department [address] [place] [address] Patient: GRISELDA REEDER/Age/Sex: 1965 - 58 - F Unit#: [id number] Location/Status: [facility]/REG CLI Mnemonic/Ordering Site: [facility] Ordering Physician: KURT CAT MD Al[facility]ira Screening Digital - 06/18/24 - 1330 Report Status:Signed EXAM: Alcira Screening Digital EXAM DATE AND TIME: 06/18/2024 1:31 PM HISTORY: Screening. Personal history of right breast carcinoma(high-grade DCIS) treated with lumpectomy in 2010 followed by radiation treatment.Sister had breast carcinoma at age 50. COMPARISON: 06/17/23, 06/07/22, 05/09/21, 05/02/20 TECHNIQUE: Bilateral digital breast tomosynthesis was performed in the CCand MLO projections. Computer aided detection with [employer] 3D 3.1was employed. TISSUE DENSITY: c. The [...] Date/Time: 06/18/24 1433 Sign date/Time: 06/18/24 1435 Kurt Cat MD IMG BI PROCEDURES Final Res ult * Hm Depression Screening (06/11/2024) Pathologist [facility] Depression Screening abstracted [facility] Provider HEALTH MAINTENANCE Final Result * Lipid panel (06/11/2024) [facility] LDL/HDL Ratio 2 0 - 4 Triglycerides 95 0 - 150 mg/dL Cholesterol 196 0 - 200 mg/dL HDL 93 >=40 mg/dL LDL Cholesterol 84 0 - 100 mg/dL Blood Venous blood specimen / Unknown Result [facility] Provider LAB BLOOD ORDERABLES Jennifer l Result * Colonoscopy (05/06/2022) [facility] Colonoscopy abstracted,no interpretation Anatomical Region Laterality Modality Other [facility] Provider HEALTH MAINTENANCE Final Result * Cervical Cancer Screening: HPV (10/15/2021) [facility] Cervical Cancer Screening: HPV abstracted ,negative [facility] Provider HEALTH MAINTENANCE Final Result * HIV Screening (02/27/2018) [facility] HIV Screening abstracted [facility] Provider HEALTH MAINTENANCE Final Result * Hepatitis C Screening (02/27/2018) [facility] Hepatitis C Screening Abstracted [facility] Provider HEALTH MAINTENANCE Final Result from Last 3 Months or Most Recently Relevant to Health Maintenance Insurance [facility] Care Teams Service Attendant Relationship Specialty Start Date End Date Tanisha Martínez MD PCP - General 08/25/24
[2025-04-13 18:12] LABS: Hematocrit 37.6 % (37.0-47.0); Hemoglobin 12.6 g/dl (12.0-16.0); Mean Corpuscular HGB Conc 33.5 g/dl (31.0-35.0); Mean Corpuscular Hemoglobin 30.4 pg (27.0-33.0); Mean Corpuscular Volume 90.6 fL (80.0-98.0); Mean Platelet Volume 10.7 fL (9.4-12.3); Platelet Count 215 X10*3/uL (160-400); Red Blood Count 4.15 X10*6/uL (4.20-5.50); Red Cell Distribution Width 13.2 % (11.0-16.0); White Blood Count 4.1 X10*3/uL (4.8-10.8)
[2025-04-13 18:23] LABS: Estimated Average Glucose 108 mg/dL; Hemoglobin A1c % 5.4 % (<6.0)
[2025-04-13 18:37] LABS: Creatinine Urine 65.11 mg/dL; Microalbum/Creatinine Ratio Ur 7.6 ug/mg cr (<30)
[2025-04-13 18:46] LABS: Alanine Aminotransferase 22 U/L (0-31); Albumin Level 4.4 g/dL (3.5-5.0); Alkaline Phosphatase 64 U/L (39-117); Anion Gap 10 (12-20); Aspartate Amino Transferase 26 U/L (5-31); Bilirubin Total 0.5 mg/dL (0.0-1.0); Blood Urea Nitrogen 14 mg/dL (9-16); Calcium 9.7 mg/dL (8.4-10.2); Carbon Dioxide 27 mmol/L (22-29); Chloride 108 mmol/L (96-108); Cholesterol 188 mg/dL (<200); Estimated Glomerular Filt Rate > 60; Ferritin 130 ng/mL (10-250); Glucose Random 103 mg/dL (60-115); HDL Cholesterol 77 mg/dL (>40); LDL Cholesterol Calculated 99 mg/dL (<100); Potassium 3.8 mmol/L (3.3-5.1); Sodium 141 mmol/L (135-145); TSH reflex Free T4 1.53 uIU/mL (0.32-4.0); Total Protein 6.7 g/dL (6.5-8.0); Triglycerides 60 mg/dL (<150); Vitamin D 25-OH Total 53.5 ng/mL (>30)
[2025-04-13 19:03] LABS: Vitamin B12 582 pg/mL (200-900)
== END 2025-04-13 15:12 | disposition home or self-care (01) ==
LOC: HO.WFDLDS 15:11
PROVIDERS: Visit Provider Nurse Practitioner Family
DX: Z00.00 Encounter for general adult medical examination without abnormal findings (principal); E06.3 Autoimmune thyroiditis
CPT/HCPCS: 36415; 80053; 80061; 82043; 82306; 82570; 82607; 82728; 82746; 83036; 84443; 85027

== ENCOUNTER 2025-08-16 08:22 | Outpatient (REF) | payer OTHER, SELFPAY ==
--- OUTSIDE RECORDS SUMMARY | 2024-08-25 10:30 | XMS_ITS | Encounter Summary ---
Author Organization [facility] Address [address] [place] [address] Care Team Providers Care Head Batcher Name Role Phone Tanisha Martínez MD Primary Care Provider [phone] Encounter Details Date Type Department Care Team (Late Contact Info) Description 08/25/2024 10:30 AM EDT Hospital Encounter TH HISTORIC ENCOUNTERS EASTERN CONVERSION ONLY Kurt Nassar MD [address] [place] [address] Social History Tobacco Use Types Packs/Day Years Used Date Smoking Tobacco: Never Smokeless Tobacco: Never Alcohol Use Standard Drinks/Week Comments Yes 0 (1 standard drink = 0.6 oz pur e alcohol) Comments Unknown Sex and Gender Information Value Date Recorded Sex Assigned at Not on file Legal Sex Female 4:21 PM EST Gender Identity Not on file Sexual Orientation Not on file documented as of this encounter Plan of Treatment Upcoming Encounters Date Type Department Care Team (Late Contact Info) Description 05/17/2026 9:00 AM EDT Office Visit [facility] Hematology Oncology [address] [place] [id number] Kurt Nassar MD [address] [place] [address] documented as of this encounter Visit Diagnoses Not on filedocumented in this encounter Care Teams Head Batcher Relationship Specialty Start Date End Date Tanisha Martínez MD PCP - General 08/25/24 documented as of this encounter
--- OUTSIDE RECORDS SUMMARY | 2025-08-16 08:46 | XMS_ITS | Encounter Summary ---
Author Organization [facility] Address [address] [employer] [address] [address] Phone Care Team Providers Care Boats Renter Name Role Phone Tanisha Fish MD Primary Care Provider [phone] Encounter Details Date Type Department Care Team (Late st Contact Info) Description 09/24/2024 Procedure Pass OR Admitting Dept - Virtual Department [address] [place] [address] Social History Tobacco Use Types Packs/Day Years Used Date Smoking Tobacco: Never Smokeless Tobacco: Never Alcohol Use Standard Drinks/Week Comments Yes 1 (1 standard drink = 0.6 oz pur e alcohol) Education Answer Date Recorded Are you interested in more education? Not on valente e 04/16/2023 Are you concerned about learning? Not on file 04/16/2023 No 04/16/2023 No 04/16/2023 Digital Access Answer Date Recorded No 04/16/2023 No 04/16/2023 Reliable internet access at home? Not on file 04/16/2023 Device with a working camera? Not on file Intimate Partner Violence Answer Date R ecorded Are you denied basic needs s uch as food, clothing, or medical care? No 09/24/2024 In the past 12 months have y ou been in a relationship with a person who hurts, threatens, or tries to control you? No 09/24/2024 Are you denied basic needs s uch as food, clothing, or medical care? No 09/24/2024 In the past 12 months have y ou been in a relationship with a person who hurts, threatens, or tries to control you? No 09/24/2024 Comments No Sex and Gender Information Value Date Recorded Sex Assigned at Female 10/07/2023 1:56 PM EST Legal Sex Female 11:37 AM EDT Gender Identity Female 10/07/2023 1:56 PM EST Sexual Orientation Choose not to disclose 2022 1:56 PM EST documented as of this encounter Functional Status * Calculated C-SSRS Risk Score (Lifetime/Recent) Answer Date of Assessment Author No Risk Indicated 09/24/2024 1:04 PM Debra Garner RN * [place] Suicide Severity Rating Scale (Screener/Recent Self-Report) Question Answer Date of Assessment Author 1. Wish to be (Past 1 Month) No 024 1:04 PM Debra Garner RN 2. Non-Specific Active Suici lin Thoughts (Past 1 Month) No 09/24/2024 1:04 PM Debra Garner RN 6. Suicidal Behavior (Lifetime) No 1:04 PM Debra Garner RN documented as of this encounter Plan of Treatment Upcoming Encounters Date Type Department Care Team (Late st Contact Info) Description 09/14/2025 9:30 AM EST Office Visit [facility] General Surgical Care [address] [place] [address] Syl Rosales MD [address] [place] [address] 05/10/2026 8:20 AM EDT Office Visit [facility] [address] [place] [address] Danielle Conrad MD [address] [place] [address] documented as of this encounter Visit Diagnoses Not on filedocumented in this encounter Care Teams Boats Renter Relationship Specialty Start Date End Date Tanisha Fish MD PCP - General Internal Medicine 08/18/24 documented as of this encounter Additional Source Comments The information contained in this document represents components of the legal health record. It is not the complete legal health record.[facility]
--- OUTSIDE RECORDS SUMMARY | 2025-08-16 08:47 | XMS_ITS | Clinical Summary ---
Author Organization [facility] Address [address] [place] [address] Care Team Providers Care Restaurant Floor Manager Name Role Phone Tanisha Martínez MD Primary Care Provider [phone] Allergies No known active allergies Medications Medication [...] 71 08/25/2024 10:33 AM EDT Temperature 36.7 C (98 F) 08/25/2024 10:33 AM EDT Respiratory Rate - [...] 2) 02/04/2015 12/10/19 15 Influenza Vaccine (#1) 2025 DTap / Tdap / Td (2 - [...] age to complete this topic Care Teams Restaurant Floor Manager Relationship Specialty Start Date End Date Tanisha Martínez MD PCP - General Internal Medicine 08/25/24
--- OUTSIDE RECORDS SUMMARY | 2025-08-16 08:47 | XMS_ITS | Clinical Summary ---
Author Organization [facility] Address [address] [place] [address] Phone Care Team Providers Care Meat Slicer Name Role Phone Tanisha Fish MD Primary Care Provider Allergies Active Allergy Reactions Criticality Noted Date Comments Venom-Honey Bee Hives 01/28/2017 Medications vitamins A,C,E-zinc-linda er (PRESERVISION AREDS) 4,296 mcg-226 mg-90 mg Cap Take 1 capsule by mouth 3 (three) times a day. Active calcium carbonate 1,250 mg (500 mg elemental)/5 mL Acti ve triamcinolone acetonide 0.1 % cream APPLY TWICE DAILY TO AFFECTED AREA ON THE ARMS FOR TWO WEEKS, BREAK ONE WEEK, REPEAT NEEDED 11/25/2024 Active cholecalciferol (VITAMIN D3) 400 unit tablet Take 400 Units by mouth daily. 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 Last TSH 2.55 on 04/12/2025 while taking 75 mcg LT4 8 tablets/week= 86 mcg daily average. Gave option to patient to switch her prescription to 88 mcg tablets 7 days a week. She prefers to use the current dosage. -Repeat TSH yearly or as clinically indicated -Reviewed symptoms of under and over replacement, patient to call if concerned Assessment & Plan (05/06/2024 9:57 AM EDT): We increased her levothyroxine to 8 tablets/week of the 75 mcg tablet in 10/2023. Follow-up TSH was normal at 2.56 on 03/19/2024 on this dose. She is clinically euthyroid. Plan to continue current dose. Repeat TSH in 1 year or as clinically indicated. Reviewed symptoms of under and over replacement, patient to call if concern. 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 She was started on levothyroxine in 06/2020. She is clinically euthyroid. Last TSH was slightly elevated with normal free T4 in mid August while taking 75 mcg levothyroxine daily consistently. We discussed option to slightly increase the levothyroxine to normalize TSH which patient agreed with. She will take 8 tablets/week of the 75 mcg levothyroxine per week giving a daily average of 86 mcg. Repeat TSH in 2 to 3 months. Reviewed the symptoms of under and over replacement, patient to call if concerned. Multinodular thyroid 10/14/2023 Assessment & Plan (05/04/2025 10:01 AM EDT): She had an FNA of a left inferior exophytic 9 mm nodule in 09/2018 which was nondiagnostic with a single group of cells which may be follicular cells. There was a background of Kimberley's thyroiditis. FNA was technically difficult and was not repeated. This nodule has not changed significantly through the years. She also has a right superior heterogeneous 17 mm nodule which was stable between 2017 and 04/2021 when she had her last ultrasound. This nodule was not biopsied. She has no history of radiation exposure to the head and neck nor family history of thyroid cancer. Last thyroid ultrasound on 05/26/2024, images reviewed. Prior ultrasound images were not available for comparison. The right upper nodule measured smaller at 1.2 cm, TR 3, the right lower nodule was stable 9 mm TR 3 there is a 1 cm TR 3 nodule in the left lower lobe. No compression symptoms in the thyroid bed. No palpable nodule on exam today. - Will request previous thyroid ultrasound images from [facility] for comparison. Will decide on further follow-up plans pending on review Assessment & Plan (05/06/2024 9:57 AM EDT): She had an FNA of a left inferior exophytic 9 mm nodule in 09/2018 which was nondiagnostic with a single group of cells which may be follicular cells. There was a background of Kimberley's thyroiditis. FNA was technically difficult and was not repeated. This nodule has not changed significantly through the years. She also has a right superior heterogeneous 17 mm nodule which was stable between 2017 and 04/2021 when she had her last ultrasound. No compression symptoms in the thyroid bed. No palpable nodule on exam today. She is scheduled to have a repeat ultrasound on 05/26/2024, will review through [facility]. Assessment & Plan (10/14/2023 10:25 AM EST): She had an FNA of a left inferior exophytic 9 mm nodule in 09/2018 which was nondiagnostic with a single group of cells which may be follicular cells. There was a background of Kimberley's thyroiditis. FNA was technically difficult and was not repeated. This nodule has not changed significantly through the years. She also has a right superior heterogeneous 17 mm nodule which was stable between 2017 and 04/2021 when she had her last ultrasound. No compression symptoms in the thyroid bed. No palpable nodule on exam today. Plan to repeat ultrasound in 04/2024. Family History Medical History Relation Comments Lung cancer Father Lung cancer Mother Thyroid disease Mother Breast cancer Sister Relation Status Comments Father Mother Sister Social History Tobacco Use Types Packs/Day Years Used Date Smoking Tobacco: Never Smokeless Tobacco: Never Tobacco Cessation:Counseling Given: Not Answered Alcohol Use Standard Drinks/Week Comments Yes 1 [...] not to disclose 2022 1:56 PM EST Last Filed Vital Signs Vital Sign Reading Time Taken Comments Blood Pressure 122/62 05/04/2025 9:31 AM EDT Pulse 80 05/04/2025 9:31 AM EDT Temperature 36.4 C (97.6 F) 01/25/2025 8:50 AM EDT Respiratory Rate 20 09/25/2024 8:12 AM EST Oxygen Saturation 97% 05/04/2025 9:31 AM EDT Inhaled Oxygen Concentration - - Weight 56.2 kg (124 lb) 05/04/2025 9:31 AM EDT Height 160 cm (5' 3 ) 05/04/2025 9:31 AM EDT Body Mass Index 21.97 05/04/2025 9:31 AM EDT Plan of Treatment Upcoming Encounters Date Type Department Care Team (Late st Contact Info) Description 09/14/2025 9:30 AM EST Office Visit [facility] General Surgical Care [address] [place] [address] Syl Rosales MD [address] [facility], 2nd [place] [address] 05/10/2026 8:20 AM EDT Office Visit [facility] [address] [place] [address] [place] [address] Danielle Conrad MD [address] [place] [id number] [email or web address] Health Maintenance Due Date Last Done Comments DEPRESSION SCREENING 1976 HEPATITIS C SCREENING 1982 HIV ONE-TIME SCREENING (18-65 YEARS) 1982 PNEUMOCOCCAL VACCINES (50+ years) (1 of 2 - PCV) 1983 ZOSTER VACCINES (1 of 2) 1983 COLOGUARD 2009 COLONOSCOPY 2009 COLORECTAL CANCER SCREENING 2009 FIT TEST 2009 FOBT 2009 SIGMOIDOSCOPY 2009 VIRTUAL COLONOSCOPY 2009 PAP SMEAR 10/15/2024 10/15/2021 INFLUENZA VACCINE (#1) 2025 COVID-19 VACCINE ( - 2024- season) 2025 TSH LEVEL 04/13/2026 04/13/2025, 03/10, 10/14/2023, Additional history exists MAMMOGRAM 07/01/2026 07/01/2024, 06/11, 06/25/2024, Additional history exists LIPID PANEL 06/11/2029 06/11/2024 Adult Td,Tdap Booster 06/11/2034 06/11/2024 RSV VACCINE (1 - 1-dose 75+ series) 2039 SMOKING STATUS SCREENING (Once After 26 Yrs) Completed 05/04/2025 HEPATITIS A VACCINES Aged Out No long er eligible based on patient's age to complete this topic HIB VACCINES Aged Out No longer eligi ble based on patient's age to complete this topic MENINGOCOCCAL VACCINES (ACWY) Aged Out No longer eligible based on patient's age to complete this topic MENINGOCOCCAL VACCINES (B) Aged Out N o longer eligible based on patient's age to complete this topic Medical Devices Implanted Type Area Typing Office Worker Device Identifier Shelf Expiration Date Model / Serial / Lot Clip Clip Right: Breast [employer] [place] Memorygel Boost Breast Implant Implanted:Qty: 1 on 09/24/2024 by Alfa Lopez MD at [facility] Right: Breast 06/02/2029 [id number] / / [id number] Breast Kit 11cm Wx20 L 0.71.4mm Med Flexhd Pliable Shaped Thin Thick - [id number] Implanted:Qty: 1 on 09/24/2024 by Alfa Lopez MD at [facility] Right: Breast MUSCULOSKELETAL TRANSPLANT 01/15/2025 [id number] / / Breast Kit 11cm Wx20 L 0.71.4mm Med Flexhd Pliable Shaped Perforated Thin Thick - [id number] Implanted:Qty: 1 on 09/24/2024 by Alfa Lopez MD at [facility] Left: Breast MUSCULOSKELETAL TRANSPLANT 11/24/2026 [id number] / / [employer] [place] Memorygel Boost Breast Implant Implanted:Qty: 1 on 09/24/2024 by Alfa Lopez MD at [facility] Left: Breast 06/02/2029 [id number] / [id number] / Procedures Procedure Name Priority Date/Time Associated Diagnosis Comments TSH WITH REFLEX Routine 04/13/2025 11:14 AM EDT Multinodular thyroid BI MAMMOGRAM OUTSIDE (NO INTERPRETATION) Routine 07/01/2024 12:00 AM EDT from Last 3 Months or Most Recently Relevant to Health Maintenance Results * TSH with reflex (04/13/2025 11:14 AM EDT) Blood us Danielle Conrad MD LAB BLOOD ORDERABLES Final Res ult EXTERNAL NON-INTERFACED REF LAB * Mammogram Outside (No Interpretation) (07/01/2024 12:00 AM EDT) Narrative Record, Corin - 08/17/2024 11:48 AM EDT This study is for PACS storage only and not for interpretation. Procedure Note Record, Corin - 08/17/2024 This study is for PACS storage only and not for interpretation. us Unknown Unknown MD [facility] OUTSIDE IMAGING W/OUT INT ERPRETATION Final Result from Last 3 Months or Most Recently Relevant to Health Maintenance Insurance WELLSENSE NON NSPG PCP SILVER CLARITY CONNECTORCARE WELLSENSE NON NSPG PCP SILVER CLARITY CONNECTORCARE WELLSENSE NON NSPG PCP SILVER CLARITY CONNECTORCARE WELLSENSE NON NSPG PCP SILVER CLARITY CONNECTORCARE WELLSENSE NON NSPG PCP SILVER CLARITY CONNECTORCARE WELLSENSE NON NSPG PCP SILVER CLARITY CONNECTORCARE Advance Directives For more information, please contact: [phone] (9AM - 5PM [facility], Friday[facility]Friday) * Full Code (Latest Code Status on File) Date Activated Date Inactivated Comments 09/24/2024 6:07 AM Question Answer Comments Code Status Confirmed With: Other (specify below ) Code Discussion Comments: periop * Full Code Date Activated Date Inactivated Comments 09/21/2024 9:41 AM 09/24/2024 6:07 AM Question Answer Comments Code Status Confirmed With: Patient Care Teams Meat Slicer Relationship Specialty Start Date End Date Tanisha Fish MD PCP - General Internal Medicine 08/18/24 Additional Source Comments The information contained in this document represents components of the legal health record. It is not the complete legal health record.[facility]
--- OUTSIDE RECORDS SUMMARY | 2025-08-16 08:47 | XMS_ITS | Encounter Summary ---
Author Organization [facility] Address [address] [address] Phone Care Team Providers Care Virtual Assistant For Advertisers Name Role Phone Tanisha Fish MD Primary Care Provider + [phone] Encounter Details Date Type Department Care Team (Late st Contact Info) Description 09/21/2024 Procedure Pass OR Admitting Dept - Virtual Department [address] [place] [address] Social History Tobacco Use Types Packs/Day Years [...] 09/24/2024 1:04 PM Debra Garner RN * [place] Suicide Severity Rating Scale (Screener/Recent Self-Report) Question [...] 09/14/2025 9:30 AM EST Office Visit [facility] General Surgical Care [address] [place] [address] Syl Rosales MD [address] [place] [address] 05/10/2026 8:20 AM EDT Office Visit [facility] [address] [place] [address] Danielle Conrad MD [address] [place] [address] documented as of this encounter Visit Diagnoses Not on filedocumented in this encounter Care Teams Virtual Assistant For Advertisers Relationship Specialty Start Date End Date Tanisha Fish MD PCP - General Internal Medicine 08/18/24 documented as of this encounter Additional Source Comments The information contained in this document represents components of the legal health record. It is not the complete legal health record.[facility]
--- OUTSIDE RECORDS SUMMARY | 2025-08-16 08:47 | XMS_ITS | Clinical Summary ---
Author Organization [facility] Address [address] [place] [address] Phone Care Team Providers Care Formula Weigher Name Role Phone Tanisha Martínez MD Primary Care Provider [phone] Allergies Active Allergy Reactions Criticality Noted Date Comments Bee Venom Protein (Honey Bee) 2016 Medications calcium carbonate-cholec alciferol 500 mg-10 mcg (400 unit) per chewable tablet Chew by mouth. Active multivitamin with minerals tablet Take by mouth Active levothyroxine (SYNTHROID, LEVOTHROID) 75 mcg tablet Take 1 tablet (75 mcg total) by mouth 1 (one) time each day in the morning. Take an extra tablet on Sundays. 09/13/2024 Active vit A/vit C/vit E/zinc/copper (PRESERVISION AREDS ORAL) Take by mouth. Active Active Problems Problem Noted Date Diagnosed Date Osteopenia 08/05/2024 Macular degeneration 08/05/2024 Hypothyroidism 08/05/2024 Neoplasm of right breast, pr imary tumor staging category Tis: ductal carcinoma in situ (DCIS) 04/23/2018 Immunizations Immunization Administration Dates Next Due Influenza, live, intranasal, trivalent (FluMist) 2yo to less than 50yo 07/25/2024 Tdap Tetanus diptheria acell ular pertussis (Boostrix; Adacel) 7yo and older 06/11/2024 Zoster recombinant (Shingrix) 19yo and older Surgical History Surgery Date Site/Laterality Comments CHOLECYSTECTOMY 2004ish PROCEDURE: LAPAROSCOPIC CHOLECYSTECT BREAST LUMPECTOMY 08/14/2010 Right PROCEDURE: HISTORICAL BREAST LUMPECTOMY; COMMENT: Right breast needle-localized lumpectomy. Dr. Vangie Benjamin, [facility]. OTHER SURGICAL HISTORY 03/14/2011 Right PROCEDURE: PA EXC BREAST LES PREOP PLMT RAD MARKER OPEN 1 LES; COMMENT: Right breast needle-localized excision of suspicious calcifications, beingn. Dr. Vangie Benjamin, [facility]. HYSTERECTOMY PROCEDURE: HISTORICAL HYSTERECTOMY; COMMENT: Laparoscopic supracervical [...] Sign Reading Time Taken Comments Blood Pressure 128/85 05/12/2025 3:43 PM EDT Pulse 80 05/12/2025 3:43 PM EDT Temperature 37.3 C (99.1 F) 05/12/2025 3:43 PM EDT Respiratory Rate - - Oxygen Saturation 99% 05/12/2025 3:43 PM EDT Inhaled Oxygen Concentration - - Weight 55.8 kg (123 lb) 05/12/2025 3:43 PM EDT Height 160 cm (5' 3 ) 05/12/2025 3:43 PM EDT Body Mass Index 21.79 05/12/2025 3:43 PM EDT Plan of Treatment Upcoming Encounters Date Type Department Care Team (Late st Contact Info) Description 05/17/2026 9:00 AM EDT Office Visit [facility] Hematology Oncology [address] [place] [address] Kurt Cat MD [address] [place] [address] Health Maintenance Due Date Last Done Comments Pneumococcal Vaccine: 50+ Years (1 of 2 - PCV) 1983 Social Influencers of Health Screening 10/19/2022 Depression Screening 11/10/2024 06/11/2024 COVID-19 Vaccine ( season) 2025 09/28/2022, 10/15/2021, 01/21/2021, Additional history exists Influenza Vaccine (#1) 2025 4, 07/25/2024, 08/19/2023, Additional history exists Breast Cancer Screening 06/18/2026 06/18/20 24, 06/17/2023, [...] 02/27/2018 Zoster Vaccines Completed 11/09/2018, 08/10, 2014 HIB Vaccines Aged Out No longer eligi [...] Procedure Name Priority Date/Time Associated Diagnosis Comments PAYAL SCREENING DIGITAL Routine 06/18/2024 2:35 PM EDT Encounter for screening mammogram for malignant neoplasm of breast DEPRESSION SCREENING Routine 06/11/2024 LIPID PANEL Routine 06/11/2024 COLONOSCOPY Routine 05/06/2022 HPV Routine 10/15/2021 HEPATITIS C SCREENING Routine 02/27/2018 HIV SCREENING Routine 02/27/2018 from Last 3 Months or Most Recently Relevant to Health Maintenance Results * PAYAL SCREENING DIGITAL (06/18/2024 2:35 PM EDT) Anatomical Region Laterality Modality Mammography 06/18/2024 1:14 PM EDT Narrative 06/18/2024 2:35 PM EDT [facility] Diagnostic Imaging Department [address] [place] [id number] Patient: LILLIGRISELDA D.O.B./Age/Sex: 1965 - 58 - F Unit#: [id number] Location/Status: SPDIMAM/REG CLI Mnemonic/Ordering Site: [facility] Ordering Physician: KURT CAT MD [facility] Screening Digital - 06/18/24 - 1330 Report Status:Signed EXAM: [facility] Screening Digital EXAM DATE AND TIME: 06/18/2024 1:31 PM HISTORY: Screening. Personal history of right breast carcinoma (high-grade DCIS) treated with lumpectomy in 2010 followed by radiation treatment. Sister had breast carcinoma at age 50. COMPARISON: 06/17/23, 06/07/22, 05/09/21, 05/02/20 TECHNIQUE: Bilateral digital breast tomosynthesis was performed in the CC and MLO projections. Computer aided detection with GeoPoll 3D 3.1 was employed. TISSUE DENSITY: c. [...] No evidence of malignancy is seen. BI-RADS: Category 0: Incomplete - Need Additional Imaging Evaluation RECOMMENDATION(S): 1: Special mammographic view(s) needed RIGHT Dictating Physician: CANDACE ABDI MD Electronically Signed by: CANDACE ABDI MD Dic Date/Time: 06/18/24 1433 Sign date/Time: 06/18/24 1435 Procedure Note Candace Abdi MD - 08/25/2024 [facility] Diagnostic Imaging Department [address] [place] [address] Patient: LILLIGRISELDA /Age/Sex: 1965 - 58 - F Unit#: [id number] Location/Status: [facility] CLI Mnemonic/Ordering Site: [facility] Ordering Physician: KURT CAT MD [facility] Screening Digital - 06/18/24 - [id number] Report Status:Signed EXAM: [facility] Screening Digital EXAM DATE AND TIME: 06/18/2024 1:31 PM HISTORY: Screening. Personal history of right breast carcinoma(high-grade DCIS) treated with lumpectomy in 2010 followed by radiation treatment.Sister had breast carcinoma at age 50. COMPARISON: 06/17/23, 06/07/22, 05/09/21, 05/02/20 TECHNIQUE: Bilateral digital breast tomosynthesis was performed in the CCand MLO projections. Computer aided detection with iCAD Unbounce 3D 3.1was employed. TISSUE DENSITY: c. The breasts are heterogeneously dense, which mayobscure small masses. FINDINGS: Focal asymmetry and architectural distortion are again seen in the medialright breast, approximately middle 3:00, consistent with the lumpectomy scar.There is thickening and retraction of the overlying skin, unchanged. New linearly oriented microcalcifications extend anteriorly, toward [facility], from the scar. Further assessment with spot [...] IMG BI PROCEDURES Final Res ult * Depression Screening (06/11/2024) Pathologist [facility] Depression Screening abstracted Historical Provider HEALTH MAINTENANCE Final Result * Lipid panel (06/11/2024) LDL/HDL Ratio 2 0 - 4 Triglycerides 95 0 - 150 mg/dL Cholesterol 196 0 - 200 mg/dL HDL 93 >=40 mg/dL LDL Cholesterol 84 0 - 100 mg/dL Blood Venous blood specimen / Unknown Historical Provider LAB BLOOD ORDERABLES Jennifer l Result * Colonoscopy (05/06/2022) Pathologist [facility] Colonoscopy abstracted,no interpretation Anatomical Region Laterality Modality Other Historical Provider HEALTH MAINTENANCE Final Result * Cervical Cancer Screening: HPV (10/15/2021) [facility] Cervical Cancer Screening: HPV abstracted ,negative [facility] Provider HEALTH MAINTENANCE Final Result * HIV Screening (02/27/2018) [facility] HIV Screening abstracted [facility] Provider HEALTH MAINTENANCE Final Result * Hepatitis C Screening (02/27/2018) Pathologist [facility] Hepatitis C Screening Abstracted [facility] Provider HEALTH MAINTENANCE Final Result from Last 3 Months or Most Recently Relevant to Health Maintenance Insurance [facility] [place] [address] Care Teams Formula Weigher Relationship Specialty Start Date End Date Tanisha Martínez MD PCP - General 08/25/24
[2025-08-16 11:33] LABS: Hematocrit 38.2 % (37.0-47.0); Hemoglobin 12.9 g/dl (12.0-16.0); Mean Corpuscular HGB Conc 33.8 g/dl (31.0-35.0); Mean Corpuscular Hemoglobin 31.2 pg (27.0-33.0); Mean Corpuscular Volume 92.5 fL (80.0-98.0); NRBC Abs Auto 0.000 X10*3/uL (0.0-0.012); NRBC Pct Auto 0.0 /100WBC (0.0-0.2); Platelet Count 211 X10*3/uL (160-400); Red Blood Count 4.13 X10*6/uL (4.20-5.50); White Blood Count 3.4 X10*3/uL (4.8-10.8)
[2025-08-16 12:08] LABS: Alanine Aminotransferase 25 U/L (0-31); Albumin Level 4.3 g/dL (3.5-5.0); Alkaline Phosphatase 58 U/L (39-117); Anion Gap 13 (12-20); Aspartate Amino Transferase 29 U/L (5-31); Blood Urea Nitrogen 13 mg/dL (9-16); Calcium 9.5 mg/dL (8.4-10.2); Carbon Dioxide 29 mmol/L (22-29); Chloride 107 mmol/L (96-108); Cholesterol 192 mg/dL (<200); Estimated Glomerular Filt Rate > 60; HDL Cholesterol 69 mg/dL (>40); Potassium 3.8 mmol/L (3.3-5.1); Sodium 145 mmol/L (135-145); Total Protein 6.7 g/dL (6.5-8.0); Triglycerides 70 mg/dL (<150)
[2025-08-16 12:24] LABS: Folate 8.7 ng/mL (> or = 4.0); Vitamin B12 636 pg/mL (200-900)
[2025-08-16 12:24] LABS: Microalbum/Creatinine Ratio Ur 9.1 ug/mg cr (<30)
[2025-08-16 12:26] LABS: Hemoglobin A1C 123.4814 umol/L; Total Hemoglobin (HGBA1C) 3339.6801 umol/L
== END 2025-08-16 08:23 | disposition home or self-care (01) ==
LOC: HO.WFDLDS 08:22
PROVIDERS: Visit Provider Nurse Practitioner Family
DX: Z00.00 Encounter for general adult medical examination without abnormal findings (principal)
CPT/HCPCS: 36415; 80053; 80061; 82043; 82306; 82570; 82607; 82746; 83036; 84443; 85027